=== PATIENT | female | born 1935 | race Caucasian/White ===

== ENCOUNTER 2018-12-12 23:07 | Inpatient (IN) | payer MEDICARE, MEDICAID ==
[2018-12-13] MEDS ORDERED: Ondansetron ODT 4 MG TAB PO PRN (02:29)
[2018-12-13] MEDS ORDERED: Ondansetron PF 4 MG/2 ML Vial IVP PRN (02:29)
[2018-12-13] MEDS ORDERED: Dextrose 5% in Water 1,000 ML IV PRN (02:31)
[2018-12-13] MEDS ORDERED: HumaLOG 300 UNITS/3 ML VIAL SC PRN (02:31)
[2018-12-13] MEDS ORDERED: Dextrose 50% Abboject 50 ML SYRINGE SLOW IVP PRN (02:31)
--- NOTE | 2018-12-13 03:33 | HP ---
This is TAE Mccoy dictating a report for Carolyn Weaver MD. CHIEF COMPLAINT: Weakness. HISTORY OF PRESENT ILLNESS: Ms. Day is an 83-year-old woman, who was transferred here from [place] after presenting with increasing weakness since last Tuesday. The patient was in an independent living and was noted by the home health nurse to not appear to be her normal self. According to the daughter, the patient had a low-grade temperature on last Tuesday and has had no fever since. Has not had any nausea or vomiting. No chest pain, cough, or shortness of breath. She is known to have a history of recurrent UTIs which are diagnosed frequently, however, it has been quite sometime since the last time she had a urinalysis done according to her daughter. On presentation to the ER, she was noted to be afebrile. She did have laboratory studies done which were notable for a normal white count of 10.7. However, her lactic acid was elevated at 4.8. A urinalysis was done which was positive for protein, trace leukocyte esterase, 0-3 red blood cells, 4-6 white blood cells, 4+ bacteria. The most recent urine culture and sensitivity was done in July 2018 which was normal. Prior to that, urine culture done in December 2016 was positive for enterococcus and E coli sensitive to everything, but gentamicin and tetracycline. The patient was started on IV fluids in the ER as well as cefepime. REVIEW OF SYSTEMS: Her appetite has been low in the last couple of days, but she did have a peanut butter and jelly sandwich this morning. Has not had any vomiting. Her bowel movements have been normal. All other review of systems apart from those mentioned above in HPI are negative. ALLERGIES: 1. ACETAMINOPHEN. 2. AMOXICILLIN. 3. DONEPEZIL. 4. ESCITALOPRAM OXALATE. 5. HYDROCODONE BITARTRATE. 6. PRAVASTATIN. CURRENT MEDICATIONS: 1. Venlafaxine. 2. Metoprolol. 3. Levothyroxine. 4. Sinemet CR. 5. Aspirin. 6. Metformin. 7. Senokot S. 8. Potassium chloride. 9. Multivitamins. 10. Linagliptin. 11. Regular insulin. 12. Enoxaparin. 13. Clotrimazole. 14. Cholecalciferol. 15. Cefdinir. 16. Atorvastatin. PAST MEDICAL HISTORY: 1. Diabetes, on insulin. 2. Hypothyroidism. 3. GERD. 4. Hyperlipidemia. 5. Hypertension. 6. Depression. 7. Recurrent UTIs. 8. Parkinson disease. 9. Degenerative disk disease in the lumbar spine. 10. Generalized osteoarthritis. PAST SURGICAL HISTORY: 1. Left hip fracture status post open reduction and internal fixation in August 2010. 2. Vaginal hysterectomy. 3. Appendectomy. 4. Benign tumor removed from left breast. SOCIAL HISTORY: The patient is a and lives in independent living. She does not mobilize and gets around via wheelchair. No alcohol abuse, tobacco use, or illicit drug use. PHYSICAL EXAMINATION: GENERAL: The patient appears thin, but well developed, in no acute distress. VITAL SIGNS: Temperature 98.1, pulse 71, blood pressure 148/72, respirations 18, O2 saturation 99% on room air. HEENT: Normocephalic and atraumatic. Pupils are equal, round, and reactive to light. Oropharynx is clear. NECK: Supple. LUNGS: Clear to auscultation bilaterally. CARDIAC: Regular rate and rhythm. ABDOMEN: Soft, nontender, and nondistended. Normoactive bowel sounds present. No guarding or rigidity. No renal angle tenderness. EXTREMITIES: Without any edema. NEUROLOGIC: Alert, not communicative. Per daughter, she is at baseline. SKIN: Pale. No jaundice or any areas concerning for cellulitis. LABORATORY DATA: White blood count 10.7, hemoglobin 12.9, hematocrit 42.6, platelets 234. Sodium 142, potassium 4.7, chloride 103, carbon dioxide 27, anion gap 17, BUN 25, creatinine 0.84, GFR 64, glucose 212, lactic acid 4.1, calcium 9.6, total bilirubin 0.5, AST 14, ALT less than 7, alkaline phosphatase 53. Troponin I negative. BNP 51.2. Albumin 4.0, lipase 48. IMAGING DATA: 1. Chest x-ray, 12/12/2018. No definite acute abnormality. Stable scarring within the lingula. Stable cardiomegaly. 2. CT of the abdomen and pelvis, 12/12/2018. There is some right middle lobe pulmonary nodule measuring [address] chest recommended. Linear density in the lingula with a nodular configuration measuring up to 1.4 cm, also would be better assessed on CT. Cholelithiasis noted. Extensive calcification of coronary arteries. Probable punctate nonobstructing stone noted in the lower pole of the right kidney. No acute renal abnormality on either side. Multifocal hyperdensity noted along the posterior aspect of the urinary bladder, possibly representing foci of hemorrhage, calcification, debris and/or tumor measuring up to 1.3 cm. Extensive atherosclerotic calcification of the abdominal aorta and branches. Demineralized bone. Mild superior endplate fracture at L3 and age indeterminate. Mild anterior wedge compression fracture of T11. No free intraperitoneal air or evidence of small bowel obstruction. IMPRESSION AND PLAN: Ms. Day is a very pleasant 83-year-old woman, who is being admitted for management of the followin. Urinary tract infection. The patient is started on IV cefepime. Lactic acid was 4.8 on admission, slightly improved to 4.1. We will repeat with morning labs and we will continue to monitor. We will continue gentle IV hydration. We will request urine culture. 2. Diabetes mellitus. Initiate insulin sliding scale. We will resume home medications once verified. 3. Hypertension. We will resume home medications and monitor blood pressure. 4. Hypothyroidism. We will resume levothyroxine. 5. Gastrointestinal prophylaxis. 6. Deep venous thrombosis prophylaxis. We will verify the patient on enoxaparin as indicated on summary medications. We will reconcile once verified. Mechanical SCDs ordered. 7. Full code status per the patient's daughter who is her medical power of cooker mechanic. Her name is Joy Harris and would be her surrogate decision maker. The patient's case was discussed with Dr. Weaver who agrees upon care as described above. Job ID: [id number]
[2018-12-13 05:06] LABS: #Basophils 0.1 thou/uL (0.0-0.2); #Eosinphils 0.1 thou/uL (0.0-0.7); #Lymphocytes 2.2 thou/uL (1.20-3.40); #Monocytes 0.6 thou/uL (0.11-0.59); #Neutrophils 4.2 thou/uL (1.40-6.50); %Basophils 1.2 % (0.0-1.0); %Eosinophils 1.9 % (0.0-10.0); %Lymphocytes 29.8 % (21.0-51.0); %Monocytes 8.8 % (0.0-10.0); %Neutrophils 58.3 % (42.0-75.0); Hemoglobin 11.5 g/dL (12.0-16.0); Mean Corpuscular HGB CONC 31.5 g/dL (32.0-36.0); Mean Corpuscular Hemoglobin 32.1 pg (27.0-31.0); Mean Platelet Volume 6.8 fL (7.4-10.4); Platelet Count 239 thou/uL (130-400); RBC Distribution Width 12.2 % (11.5-14.5); Red Blood Cell (RBC) Count 3.59 mill/uL (4.20-5.40); White Blood Cell (WBC) Count 7.3 thou/uL (4.8-10.8)
[2018-12-13 05:43] LABS: Lactic Acid 0.9 mmol/L (0.5-2.2)
[2018-12-13 05:48] LABS: Anion Gap 10 mmol/L (10-20); BUN (Urea Nitrogen) 20 mg/dL (9.8-20.1); CK (CPK) 39 U/L (29-168); Calc. Creatinine Clearance 0 mL/min (70-130); Calcium 8.5 mg/dL (7.8-10.44); Carbon Dioxide 25 mmol/L (23-31); Chloride 109 mmol/L (98-107); Estimated GFR-MDRD 88; Glucose 160 mg/dL (83-110); Potassium 3.7 mmol/L (3.5-5.1); Sodium 140 mmol/L (136-145)
[2018-12-13] MEDS ORDERED: Levothyroxine Sodium 100 MCG TAB PO SCH (06:00)
[2018-12-13 06:04] VITALS: BMI 16.8
[2018-12-13] MEDS ORDERED: Aspirin 81 mg Enteric Coated Tablet PO SCH (09:00)
[2018-12-13] MEDS ORDERED: Carbidopa/Levodopa CR 50-200 mg Tablet PO SCH ×2 (09:00→12:00)
[2018-12-13] MEDS ORDERED: Venlafaxine HCl XR 75 MG CAP PO SCH (09:00)
[2018-12-13] MEDS ORDERED: Prevnar 13-Val Conj/PF 0.5 ML SYRINGE IM ONE (09:00)
[2018-12-13] MEDS: Famotidine/PF 20 mg/2ml Vial SLOW IVP SCH ×2 (09:33→20:25)
[2018-12-13] MEDS: Vancomycin HCl 750 MG in Sodium Chloride 0.9% 250 ML 250 ML IVPB SCH (11:50)
[2018-12-13] MEDS: HumaLOG 300 UNITS/3 ML VIAL SC PRN (11:58)
[2018-12-13] MEDS ORDERED: Venlafaxine XR 37.5 MG CAP PO SCH (12:00)
[2018-12-13] MEDS ORDERED: Meropenem 1 GM in Sodium Chloride 0.9% 100 ML IVPB SCH (14:00)
[2018-12-13] MEDS: MEROPENEM 1 GM/50 ML 1 GM in Premix Bag 1 BAG IVPB SCH ×2 (14:27→20:25)
--- NOTE | 2018-12-13 14:54 | PDOC.EVN ---
Event Note - Event Note Event Note: Pt seen and examined. Discussed w daughter at bedside. Chart reviewed. Last Urine Cx w E.coli and Enterococcus will add Vancomycin. Cont Cefeime and monitor follow Cx results clinically better has HH at assisted living facility.will add OT,PT.WC bound Hd stable. restart home meds-reviwed.
[2018-12-13] MEDS: Carbidopa/Levodopa CR 50-200 mg Tablet PO SCH (20:26)
[2018-12-13] MEDS ORDERED: Non-Formulary Item 1 EACH (Carbidopa/Levodopa [Sinemet Cr] 1 TAB) PO SCH (21:00)
[2018-12-14] MEDS: MEROPENEM 1 GM/50 ML 1 GM in Premix Bag 1 BAG IVPB SCH ×3 (05:43→20:39)
[2018-12-14] MEDS: Levothyroxine Sodium 75 MCG TAB PO SCH (05:43)
[2018-12-14] MEDS: Venlafaxine XR 37.5 MG CAP PO SCH (08:33)
[2018-12-14] MEDS: Multivit, Therapeutic 1 TAB PO SCH (08:34)
[2018-12-14] MEDS: Carbidopa/Levodopa CR 50-200 mg Tablet PO SCH ×2 (08:34→20:37)
[2018-12-14] MEDS: Aspirin 81 mg Enteric Coated Tablet PO SCH (08:34)
[2018-12-14] MEDS: Famotidine/PF 20 mg/2ml Vial SLOW IVP SCH ×2 (08:36→20:39)
[2018-12-14] MEDS: Polyethylene Glycol 3350 17 GM Packet PO SCH (08:36)
[2018-12-14] MEDS ORDERED: Venlafaxine XR 37.5 MG CAP PO SCH (09:00)
[2018-12-14] MEDS ORDERED: Vancomycin HCl 1 GM in Premix Bag 1 BAG IVPB SCH (09:00)
--- NOTE | 2018-12-14 11:55 | PQF ---
CLINICAL DOCUMENTATION IMPROVEMENT CLARIFICATION FORM: ICD-10 Updated PLEASE DO AN ADDENDUM TO THE PROGRESS NOTE WITH ANY DOCUMENTATION UPDATES OR ADDITIONS AND CARRY THROUGH TO DC SUMMARY. THANK YOU. DATE: 12/14/18 ATTN : DR. MASSEY Please exercise your independent, professional judgment in responding to the clarification form. Clinical indicators are provided on the bottom of this form for your review Please check appropriate box(s) to clarify if the following diagnosis has been ruled in or ruled out: "SEPSIS" [ ] Ruled in diagnosis [ ] Continue to treat [ ] Resolved [ X ] Ruled out diagnosis [ ] Other diagnosis [ ] Unable to determine In addition, please specify: Present on Admission (POA): [ ] Yes [ ] No [X ] Unable to determine For continuity of documentation, please document condition throughout progress notes and discharge summary. Thank You. CLINICAL INDICATORS - SIGNS / SYMPTOMS / LABS ER NOTE: "SEPSIS" "CONFUSION" RISKS: UTI ADVANCED AGE TREATMENT: IV CEFEPIME (ADMINISTERED IN [place]) IV VANCOMYCIN (12/13-PRESENT IV MERREM (12/13-PRESENT) SERIAL LABS (This form is maintained as a part of the permanent medical record) 2014 [employer] All Rights Reserved O[employer]AR [email or web address] Office: [phone] [facility]
[2018-12-14] MEDS: Vancomycin HCl 750 MG in Sodium Chloride 0.9% 250 ML 250 ML IVPB SCH (12:47)
[2018-12-14] MEDS: HumaLOG 300 UNITS/3 ML VIAL SC PRN (12:53)
--- NOTE | 2018-12-14 15:41 | PDOC.PN ---
- Subjective Encounter Start Date: 12/14/18 Encounter Start Time: 15:39 Subjective: feels a littl ebetter as per family -: pt has Parkinson's and dementia so unable to talk much -: was confused last night and restless - Objective Resuscitation Status - Order Detail: 12/13/18 02:29 Resuscitation Status Routine Co-Sign Provider: Resuscitation Status: FULL: Full Resuscitation MAR Reviewed: Yes Vital Signs & Weight: Vital Signs (12 hours) Temp Pulse Resp BP Pulse Ox 12/14/18 08:00 97 12/14/18 07:40 98.3 F 75 20 129/77 97 12/14/18 04:00 97.6 F 86 16 147/73 H 95 Weight Admit Weight 95 lb Weight 95 lb I&O: 12/13/18 12/14/18 12/15/18 06:59 06:59 06:59 Intake Total 220 480 Balance 220 480 Result Diagrams: 12/13/18 04:59 12/13/18 04:59 Additional Labs: Accuchecks 12/14/18 12/14/18 12/13/18 11:25 04:46 20:27 POC Glucose 272 H 127 H 190 H 12/13/18 16:34 POC Glucose 92 Microbiology 12/12/18 19:55 Venous blood - Left Arm Blood Culture - Preliminary Specimen has been received and culture in progress. No Growth to date. 12/12/18 19:50 Venous blood - Left Arm Blood Culture - Preliminary Specimen has been received and culture in progress. No Growth to date. 12/12/18 18:28 Urine Straight Catheter Urine Culture - Preliminary Gram Negative Jim Gram Negative Jim#2 Laboratory Tests 12/12/18 12/12/18 12/13/18 17:30 20:24 04:59 Lactic Acid 4.8 H* 4.1 H* Creatine Kinase 39 12/13/18 04:59 Lactic Acid 0.9 Creatine Kinase Phys Exam - Physical Examination Constitutional: NAD smiling and nods and follows simple commands HEENT: PERRLA, moist MMs, sclera anicteric, oral pharynx no lesions Neck: no nodes, no JVD, supple, full ROM Respiratory: no wheezing, no rales, no rhonchi, clear to auscultation bilateral Cardiovascular: RRR, no significant murmur Gastrointestinal: soft, non-tender, no distention, positive bowel sounds Musculoskeletal: no edema, pulses present Neurological: non-focal, normal sensation, moves all 4 limbs Psychiatric: normal affect, A&O x 3 Skin: no rash Dx/Plan (1) Urinary tract infection Status: Chronic Comment: cont empiric ABx. follow Cx results.GNR #1 and #2 so far (2) HTN (hypertension) Code(s): I10 - ESSENTIAL (PRIMARY) HYPERTENSION Status: Chronic Comment: cont synthroid (3) DM2 (diabetes mellitus, type 2) Status: Chronic Comment: cont ISS and accuchecks achs (4) Hypothyroid Code(s): E03.9 - HYPOTHYROIDISM, UNSPECIFIED Status: Chronic - Plan continue antibiotics, PT/OT, respiratory therapy, incentive spirometry, DVT proph w/SCDs Cont vancomycin and meropenam follow final Cx results -: OT,PT. -: Home w HH once final Abx decided based on C xresults -: add melatonin at night for hospital induced delirium -: am labs * . Review of Systems - Medications/Allergies Allergies/Adverse Reactions: Allergies Allergy/AdvReac Type Severity Reaction Status Date / Time acetaminophen [From Vicodin] Allergy Verified 01/05/16 02:01 amoxicillin Allergy Verified 01/05/16 02:01 donepezil HCl [From Aricept] Allergy Verified 01/05/16 02:01 escitalopram oxalate Allergy Verified 01/05/16 02:01 [From Lexapro] hydrocodone bitartrate Allergy Verified 01/05/16 02:01 [From Vicodin] pravastatin sodium Allergy Verified 01/05/16 02:01 [From Pravachol] Medications: Current Medications Aspirin (Ecotrin) 81 mg PO DAILY [facility] Last Admin: 12/14/18 08:34 Dose: 81 mg Carbidopa/Levodopa (Sinemet Cr 50/200) 0.5 tab PO BID [facility] Last Admin: 12/14/18 08:34 Dose: 0.5 tab Dextrose/Water (Dextrose 50%) 25 gm SLOW IVP PRN PRN PRN Reason: Hypoglycemia Famotidine (Pepcid) 20 mg SLOW IVP Q12HR [facility] Last Admin: 12/14/18 08:36 Dose: 20 mg Glucagon (Glucagon) 1 mg IM PRN PRN PRN Reason: Hypoglycemia Dextrose/Water (D5w) 1,000 mls @ 0 mls/hr IV .Q0M PRN PRN Reason: Hypoglycemia Meropenem 1 gm/ Device 50 mls @ 100 mls/hr IVPB Q8HR [facility] Last Admin: 12/14/18 12:47 Dose: 50 mls Vancomycin HCl 750 mg/ Sodium (Chloride) 250 mls @ 250 mls/hr IVPB Q24HR [facility] Last Admin: 12/14/18 12:47 Dose: 250 mls Insulin Human Lispro (Humalog) 0 units SC .MILD SLIDING SCALE PRN PRN Reason: Mild Correctional Scale Last Admin: 12/14/18 12:53 Dose: 4 unit Insulin Human Lispro (Humalog) 0 units SC .BEDTIME SLIDING SC PRN PRN Reason: Bedtime Correctional Scale Levothyroxine Sodium (Synthroid) 75 mcg PO 0600 [facility] Last Admin: 12/14/18 05:43 Dose: 75 mcg Metoprolol Succinate (Toprol Xl) 12.5 mg PO DAILY [facility] Last Admin: 12/14/18 08:35 Dose: 12.5 mg Miscellaneous Medication (Pharmacy To Dose) 0 each IVPB ASDIR [facility] Multivitamins (Theragran) 1 tab PO DAILY [facility] Last Admin: 12/14/18 08:34 Dose: 1 tab Ondansetron HCl (Zofran Odt) 4 mg PO Q6H PRN PRN Reason: Nausea/Vomiting Ondansetron HCl (Zofran) 4 mg IVP Q6H PRN PRN Reason: Nausea/Vomiting Polyethylene Glycol (Miralax) 17 gm PO DAILY [facility] Last Admin: 12/14/18 08:36 Dose: 17 gm Sodium Chloride (Flush - Normal Saline) 10 ml IVF Q12HR PRN PRN Reason: Saline Flush Sodium Chloride (Flush - Normal Saline) 10 ml IVF PRN PRN PRN Reason: Saline Flush Venlafaxine HCl (Effexor Xr) 37.5 mg PO DAILY [facility] Last Admin: 12/14/18 08:33 Dose: 37.5 mg
[2018-12-14] MEDS ORDERED: Melatonin 3 MG TAB PO PRN (15:43)
[2018-12-15] MEDS: MEROPENEM 1 GM/50 ML 1 GM in Premix Bag 1 BAG IVPB SCH ×3 (06:21→20:32)
[2018-12-15] MEDS: Levothyroxine Sodium 75 MCG TAB PO SCH (06:21)
[2018-12-15 07:09] LABS: #Basophils 0.1 thou/uL (0.0-0.2); #Eosinphils 0.3 thou/uL (0.0-0.7); #Lymphocytes 2.4 thou/uL (1.20-3.40); #Monocytes 0.8 thou/uL (0.11-0.59); #Neutrophils 3.6 thou/uL (1.40-6.50); %Basophils 0.9 % (0.0-1.0); %Eosinophils 4.5 % (0.0-10.0); %Lymphocytes 33.5 % (21.0-51.0); %Monocytes 10.6 % (0.0-10.0); %Neutrophils 50.5 % (42.0-75.0); Hemoglobin 11.5 g/dL (12.0-16.0); Mean Corpuscular HGB CONC 31.8 g/dL (32.0-36.0); Mean Corpuscular Hemoglobin 32.4 pg (27.0-31.0); Mean Platelet Volume 7.4 fL (7.4-10.4); Platelet Count 241 thou/uL (130-400); RBC Distribution Width 12.2 % (11.5-14.5); Red Blood Cell (RBC) Count 3.53 mill/uL (4.20-5.40); White Blood Cell (WBC) Count 7.1 thou/uL (4.8-10.8)
[2018-12-15 07:32] LABS: Anion Gap 11 mmol/L (10-20); BUN (Urea Nitrogen) 11 mg/dL (9.8-20.1); Calc. Creatinine Clearance 45 mL/min (70-130); Calcium 8.9 mg/dL (7.8-10.44); Carbon Dioxide 27 mmol/L (23-31); Chloride 105 mmol/L (98-107); Estimated GFR-MDRD Greater than 90; Glucose 135 mg/dL (83-110); Potassium 3.7 mmol/L (3.5-5.1); Sodium 139 mmol/L (136-145)
[2018-12-15] MEDS: Venlafaxine XR 37.5 MG CAP PO SCH (08:53)
[2018-12-15] MEDS: Aspirin 81 mg Enteric Coated Tablet PO SCH (08:55)
[2018-12-15] MEDS: Carbidopa/Levodopa CR 50-200 mg Tablet PO SCH ×2 (08:55→20:31)
[2018-12-15] MEDS: Multivit, Therapeutic 1 TAB PO SCH (08:56)
[2018-12-15] MEDS: Famotidine/PF 20 mg/2ml Vial SLOW IVP SCH ×2 (08:57→20:35)
[2018-12-15] MEDS: Polyethylene Glycol 3350 17 GM Packet PO SCH (08:58)
[2018-12-15 11:32] LABS: Vancomycin, Trough 8.6 ug/mL
[2018-12-15] MEDS: HumaLOG 300 UNITS/3 ML VIAL SC PRN (12:57)
[2018-12-15] MEDS: Vancomycin HCl 750 MG in Sodium Chloride 0.9% 250 ML 250 ML IVPB SCH (14:04)
--- NOTE | 2018-12-15 15:53 | PDOC.PN ---
- Subjective Encounter Start Date: 12/15/18 Encounter Start Time: 08:40 Pt seen for followup re:UTI. Feels well. Denies chest pain, shortness of breath, fevers or chills. - Objective Resuscitation Status - Order Detail: 12/13/18 02:29 Resuscitation Status Routine Co-Sign Provider: Resuscitation Status: FULL: Full Resuscitation MAR Reviewed: Yes Vital Signs & Weight: Vital Signs (12 hours) Temp Pulse Resp BP Pulse Ox 12/15/18 08:00 95 12/15/18 07:21 97.3 F L 75 16 117/51 L 97 Weight Admit Weight 95 lb Weight 95 lb I&O: 12/14/18 12/15/18 12/16/18 06:59 06:59 06:59 Intake Total 220 720 Balance 220 720 Result Diagrams: 12/15/18 05:49 12/15/18 05:49 Additional Labs: Accuchecks 12/15/18 12/15/18 12/14/18 11:01 04:33 20:00 POC Glucose 188 H 126 H 235 H 12/14/18 16:25 POC Glucose 129 H Labs reviewed by me Phys Exam - Physical Examination Constitutional: NAD HEENT: moist MMs Neck: supple Respiratory: clear to auscultation bilateral Cardiovascular: RRR Gastrointestinal: soft Neurological: moves all 4 limbs Psychiatric: normal affect Dx/Plan (1) Urinary tract infection Status: Chronic Comment: cont empiric ABx (IV meropenem and vancomycin) (2) DM2 (diabetes mellitus, type 2) Status: Chronic Comment: continue ISS and accuchecks (3) HTN (hypertension) Code(s): I10 - ESSENTIAL (PRIMARY) HYPERTENSION Status: Chronic Comment: controlled (4) Hypothyroid Code(s): E03.9 - HYPOTHYROIDISM, UNSPECIFIED Status: Chronic Comment: continue synthroid - Plan continue antibiotics, out of bed/ambulate * . Review of Systems - Review of Systems Cardiovascular: negative: chest pain, palpitations, orthopnea, paroxysmal nocturnal dyspnea, edema, light headedness Gastrointestinal: negative: Nausea, Vomiting, Abdominal Pain, Diarrhea, Constipation, Melena, Hematochezia - Medications/Allergies Allergies/Adverse Reactions: Allergies Allergy/AdvReac Type Severity Reaction Status Date / Time acetaminophen [From Vicodin] Allergy Verified 01/05/16 02:01 amoxicillin Allergy Verified 01/05/16 02:01 donepezil HCl [From Aricept] Allergy Verified 01/05/16 02:01 escitalopram oxalate Allergy Verified 01/05/16 02:01 [From Lexapro] hydrocodone bitartrate Allergy Verified 01/05/16 02:01 [From Vicodin] pravastatin sodium Allergy Verified 01/05/16 02:01 [From Pravachol] Medications: Current Medications Aspirin (Ecotrin) 81 mg PO DAILY [facility] Last Admin: 12/15/18 08:55 Dose: 81 mg Carbidopa/Levodopa (Sinemet Cr 50/200) 0.5 tab PO BID [facility] Last Admin: 12/15/18 08:55 Dose: 0.5 tab Dextrose/Water (Dextrose 50%) 25 gm SLOW IVP PRN PRN PRN Reason: Hypoglycemia Famotidine (Pepcid) 20 mg SLOW IVP Q12HR [facility] Last Admin: 12/15/18 08:57 Dose: 20 mg Glucagon (Glucagon) 1 mg IM PRN PRN PRN Reason: Hypoglycemia Dextrose/Water (D5w) 1,000 mls @ 0 mls/hr IV .Q0M PRN PRN Reason: Hypoglycemia Meropenem 1 gm/ Device 50 mls @ 100 mls/hr IVPB Q8HR [facility] Last Admin: 12/15/18 06:21 Dose: 50 mls Vancomycin HCl 500 mg/ Sodium (Chloride) 100 mls @ 100 mls/hr IVPB 0100,1300 [facility] Insulin Human Lispro (Humalog) 0 units SC .MILD SLIDING SCALE PRN PRN Reason: Mild Correctional Scale Last Admin: 12/15/18 12:57 Dose: 2 unit Insulin Human Lispro (Humalog) 0 units SC .BEDTIME SLIDING SC PRN PRN Reason: Bedtime Correctional Scale Last Admin: 12/14/18 20:43 Dose: 2 unit Levothyroxine Sodium (Synthroid) 75 mcg PO 0600 [facility] Last Admin: 12/15/18 06:21 Dose: 75 mcg Melatonin (Melatonin) 3 mg PO HS PRN PRN Reason: Insomnia Metoprolol Succinate (Toprol Xl) 12.5 mg PO DAILY [facility] Last Admin: 12/15/18 08:54 Dose: 12.5 mg Miscellaneous Medication (Pharmacy To Dose) 0 each IVPB ASDIR [facility] Multivitamins (Theragran) 1 tab PO DAILY [facility] Last Admin: 12/15/18 08:56 Dose: 1 tab Ondansetron HCl (Zofran Odt) 4 mg PO Q6H PRN PRN Reason: Nausea/Vomiting Ondansetron HCl (Zofran) 4 mg IVP Q6H PRN PRN Reason: Nausea/Vomiting Polyethylene Glycol (Miralax) 17 gm PO DAILY [facility] Last Admin: 12/15/18 08:58 Dose: 17 gm Sodium Chloride (Flush - Normal Saline) 10 ml IVF Q12HR PRN PRN Reason: Saline Flush Sodium Chloride (Flush - Normal Saline) 10 ml IVF PRN PRN PRN Reason: Saline Flush Venlafaxine HCl (Effexor Xr) 37.5 mg PO DAILY [facility] Last Admin: 12/15/18 08:53 Dose: 37.5 mg
[2018-12-16] MEDS ORDERED: Vancomycin HCl 500 MG in Sodium Chloride 0.9% 100 ML IVPB SCH (01:00)
[2018-12-16] MEDS: MEROPENEM 1 GM/50 ML 1 GM in Premix Bag 1 BAG IVPB SCH (05:49)
[2018-12-16] MEDS: Levothyroxine Sodium 75 MCG TAB PO SCH (05:51)
[2018-12-16 07:52] VITALS: TEMP 98.4
[2018-12-16] MEDS: Aspirin 81 mg Enteric Coated Tablet PO SCH (08:30)
[2018-12-16] MEDS: Multivit, Therapeutic 1 TAB PO SCH (08:31)
[2018-12-16] MEDS: Venlafaxine XR 37.5 MG CAP PO SCH (08:31)
[2018-12-16] MEDS: Carbidopa/Levodopa CR 50-200 mg Tablet PO SCH (08:32)
[2018-12-16] MEDS: Polyethylene Glycol 3350 17 GM Packet PO SCH (08:33)
[2018-12-16] MEDS: Famotidine/PF 20 mg/2ml Vial SLOW IVP SCH (08:33)
[2018-12-16] MEDS ORDERED: Nitrofurantoin Monohyd/M-Cryst 100 MG CAP PO SCH (11:30)
[2018-12-16 12:06] VITALS: BP 135/77
--- NOTE | 2018-12-17 02:47 | DIS ---
DATE OF ADMISSION: 12/13/2018 DATE OF DISCHARGE: 12/16/2018 PRIMARY CARE PROVIDER: Kavon Menjivar MD DISCHARGE DIAGNOSES: 1. Urinary tract infection. 2. Generalized weakness. CONDITION OF PATIENT ON THE DAY OF DISCHARGE: Stable. I assessed Ms. Day on the day of discharge. She denies any chest pain or shortness of breath. Vital signs are stable. S1 and S2 are heard, regular. Lungs are clear to auscultation bilaterally. DISCHARGE MEDICATIONS: 1. Aspirin 81 mg daily. 2. Carbidopa/levodopa 25/100 mg 2 times a day. 3. Synthroid 75 mcg daily. 4. Metformin 1000 mg 2 times a day. 5. Toprol-XL 12.5 mg daily. 6. Multivitamins 1 tablet daily. 7. MiraLAX 17 g daily. 8. Venlafaxine 37.5 mg daily. 9. Macrobid 100 mg 2 times a day for 1 week. HOSPITAL COURSE: Ms. Day is a pleasant 83-year-old lady, who was admitted to [facility] for generalized weakness and urinary tract infection on December 13, 2018. Please refer to Ms. Lofton's history and physical note dated December 13, 2018, for further details. She improved with intravenous antibiotics. Her generalized weakness improved. Urine cultures grew 3 or more different organisms, indicating probable contamination. Preliminary blood cultures were negative at 48 hours, she is advised to follow up with her primary care provider for final blood culture report. She is being discharged back to [facility] in [place]. Many thanks for allowing me to participate in your patient's care. Please feel free to contact me with any questions or concerns. DISCHARGE DESTINATION: [facility], from where the patient was admitted to the hospital. TIME SPENT: Total amount of time spent coordinating this discharge: 32 minutes. Job ID: [id number]
== END 2018-12-16 12:38 | disposition home or self-care (01) | DRG 690 ==
LOC: ERS 23:07 → ERHOLD 12-13 01:14 → T4-B 12-13 05:47
PROVIDERS: ADMIT Hospitalist; ATTEND Hospitalist
DX: N39.0 Urinary tract infection, site not specified (principal); E11.9 Type 2 diabetes mellitus without complications; E03.9 Hypothyroidism, unspecified; K21.9 Gastro-esophageal reflux disease without esophagitis; I10 Essential (primary) hypertension; E78.5 Hyperlipidemia, unspecified; F32.9 Major depressive disorder, single episode, unspecified; G20 Parkinson's disease; M51.36 Other intervertebral disc degeneration, lumbar region; M19.90 Unspecified osteoarthritis, unspecified site; Z60.2 Problems related to living alone; Z90.710 Acquired absence of both cervix and uterus; Z87.440 Personal history of urinary (tract) infections; Z88.1 Allergy status to other antibiotic agents; Z79.82 Long term (current) use of aspirin; Z88.5 Allergy status to narcotic agent; Z88.8 Allergy status to other drugs, medicaments and biological substances; Z79.899 Other long term (current) drug therapy; Z79.4 Long term (current) use of insulin
CPT/HCPCS: 36415; 36416; 80048; 80202; 82550; 83605; 85025; 90471; 90670; 99285; G0009; J2185; J3370; J3490; J7050; S0028